=== PATIENT | female | born 1965 | race Two or more races ===

== ENCOUNTER 2023-10-12 05:30 | Inpatient (IN) | payer MEDICAID ==
[2023-10-10 11:01] LABS: Basophils # (auto) 0 10 ^3/uL (0-0.2); Basophils % (auto) 0.2 % (0.0-2.0); Eosinophils # (auto) 0.1 10 ^3/uL (0-0.8); Eosinophils % (auto) 1.5 % (0.0-7.0); Hemoglobin 14.1 g/dL (12.2-16.2); Lymphocytes # (auto) 1.4 10 ^3/uL (0.4-5.4); Lymphocytes % (auto) 23.6 % (10.0-50.0); Mean Corpuscular Hgb Conc. 34.5 g/dL (32.0-36.0); Mean Corpuscular Volume 89.9 fL (80.0-100.0); Monocytes # (auto) 0.5 10 ^3/uL (0-1.3); Monocytes % (auto) 8.1 % (0.0-12.0); Neutrophils # (auto) 3.9 10 ^3/uL (1.6-8.6); Neutrophils % (auto) 66.6 % (37.0-80.0); Nucleated Red Blood Cells % 0.1 %; Red Blood Cells 4.56 10^6/uL (4.0-5.20); Red Cell Distribution Width 13.9 % (11.8-14.3); White Blood Cell 5.9 10^3/uL (4.4-10.8)
[2023-10-10 11:23] LABS: Partial Thromboplastin Time 28.5 SEC (24.5-34.5); Prothrombin Time 10.6 sec (9.3-11.8)
[2023-10-10 11:41] LABS: Alanine Aminotransferase 35 U/L (7-40); Alkaline Phosphatase 60 U/L (46-116); Anion Gap 5 (5-15); BUN/Creatinine Ratio 16.4 (10.0-20.0); Blood Urea Nitrogen 11 mg/dL (9-23); Calcium 9.6 mg/dL (8.5-10.1); Carbon Dioxide 32 mmol/L (20-30); Chloride 107 mmol/L (98-107); Glucose 112 mg/dL (74-106); Potassium 3.1 mmol/L (3.5-5.1); Sodium 144 mmol/L (136-145)
[2023-10-10 11:42] LABS: Albumin 3.8 g/dL (3.2-4.8); Aspartate Aminotransferase 25 U/L (13-40); Urine Bacteria FEW /hpf (None Seen); Urine Blood Negative /uL (Negative); Urine Clarity Clear (Clear); Urine Color Yellow (Yellow); Urine Mucus FEW (None Seen); Urine Protein, UAD Negative (Negative); Urine Specific Gravity 1.021 (1.001-1.035); Urine Urobilinogen Normal (Negative); Urine WBC 3 /hpf (0 - 5); Urine pH 6.5 (5.0-9.0)
[2023-10-10 11:43] LABS: Bilirubin, Total 0.5 mg/dL (0.2-1.0); Total Protein 6.2 g/dL (5.7-8.2)
[~2023-10-12] VITALS: Ht 157.5 cm; Wt 139.0 kg
[~2023-10-12 05:30] MED LIST: ATE50T PO; CHOL200064 PO; POTA-211 PO; SOLI10TA39 PO; TRAZ-181 PO; VENL1TAB97 PO
[2023-10-12] MEDS: BUPIVACAINE 0.5% P/F INJ 10 ML VIAL ONE (07:11)
[2023-10-12] MEDS ORDERED: DexAMETHasone SOD PHOS 10MG/1ML VIAL INJ ONE (07:15)
[2023-10-12] MEDS ORDERED: fentaNYL CITRATE 100 MCG/2 ML VL ONE (07:15)
[2023-10-12] MEDS ORDERED: ONDANSETRON HCL 4 MG/2 ML VIAL ONE (07:15)
[2023-10-12] MEDS ORDERED: KETAMINE 50mg/ML 1ml syringe ONE ×2 (07:15→08:19)
[2023-10-12] MEDS ORDERED: ePHEDrine SULFATE 50 MG/ML AMP ONE (07:15)
[2023-10-12] MEDS ORDERED: MORPHINE SULF PF 5 MG/10 ML VIAL ONE (07:15)
[2023-10-12] MEDS ORDERED: MIDAZOLAM HCL 2MG/2ML 2ml VIAL (1mg/ml) ONE (07:15)
[2023-10-12] MEDS ORDERED: PROPOFOL 10 MG/ML 20 ML IV ONE ×2 (07:15→08:58)
[2023-10-12] MEDS ORDERED: KETOROLAC TROMETH 30 MG/ML 1ML VIAL ONE (07:15)
[2023-10-12] MEDS ORDERED: GLYCOPYRROLATE 0.2 MG/ML 1ML VIAL ONE (07:15)
[2023-10-12] MEDS: BUPIVACAINE 0.25% INJ 50ML VIAL ONE (07:33)
[2023-10-12] MEDS: ceFAZolin 2 GM/D5W50ml 50 ML IV ONE (07:50)
[2023-10-12] MEDS: TRANEXAMIC ACID 20 ML ONE (07:55)
[2023-10-12] MEDS ORDERED: ceFAZolin 1GM VL ONE (07:55)
[2023-10-12] MEDS: POTASSIUM CHL 20MEQ/100ML 100 ML IV SCH (08:00)
[2023-10-12] MEDS: VANCOMYCIN HCL 1000 MG VL ONE (09:20)
[2023-10-12 09:52] VITALS: O2SAT 99
[2023-10-12] MEDS ORDERED: DexAMETHasone SOD PHOS 10MG/1ML VIAL INJ IV PRN (10:00)
[2023-10-12] MEDS ORDERED: NALOXONE HCL 0.4 MG/ML VIAL IV PRN (10:00)
[2023-10-12] MEDS ORDERED: diphenhdrAMINE HCL 50 MG/1 ML VL IV PRN (10:00)
[2023-10-12] MEDS ORDERED: MORPHINE SULFATE INJ 2 MG/ml SYRG IV PRN (10:15)
[2023-10-12] MEDS ORDERED: BISACODYL 5 MG EC TAB PO PRN (10:15)
[2023-10-12] MEDS ORDERED: NITROGLYCERIN 0.4 MG SL TAB SL PRN (10:15)
[2023-10-12] MEDS ORDERED: ceFAZolin 1GM/50ML 50 ML IV SCH (10:15)
[2023-10-12] MEDS: LACTATED RINGER'S 1,000 ML IV SCH (10:15)
[2023-10-12] MEDS: POTASSIUM CHLORIDE 40 MEQ, LIDOCAINE 1% (LOCAL ANESTH.) 4 ML in SODIUM CHL 0.9% 250 ML IV ONE (10:56)
[2023-10-12] MEDS: CLINDAMYCIN 600MG IV 50 ML IV SCH (12:22)
[2023-10-12] MEDS: ceFAZolin 1GM/50ML 50 ML IV SCH (14:01)
[2023-10-12 17:17] VITALS: BP 97/53; PULSE 63; RESP 19; TEMP 98.2; O2SAT 95
[2023-10-12 20:00] VITALS: PULSE 70
[2023-10-12 21:00] VITALS: BP 112/37; PULSE 67; RESP 16; TEMP 97.9; O2SAT 93
[2023-10-12] MEDS: DOCUSATE SOD 100 MG CAP PO SCH (21:51)
[2023-10-12] MEDS: oxyCODONE ER 10 MG TAB PO SCH (21:51)
[2023-10-13] VITALS (7 sets, daily range): BP systolic 101–137; BP diastolic 55–77; PULSE 65–79; RESP 16–20; TEMP 98–99.2; O2SAT 79–97
[2023-10-13] MEDS: KETOROLAC TROMETH 30 MG/ML 1ML VIAL IV PRN (02:00)
[2023-10-13 07:08] LABS: Alanine Aminotransferase 31 U/L (7-40); Albumin 3.3 g/dL (3.2-4.8); Alkaline Phosphatase 51 U/L (46-116); Anion Gap 5 (5-15); Aspartate Aminotransferase 21 U/L (13-40); BUN/Creatinine Ratio 23.2 (10.0-20.0); Blood Urea Nitrogen 16 mg/dL (9-23); Calcium 8.9 mg/dL (8.5-10.1); Carbon Dioxide 30 mmol/L (20-30); Chloride 107 mmol/L (98-107); Glucose 137 mg/dL (74-106); Potassium 3.5 mmol/L (3.5-5.1); Sodium 142 mmol/L (136-145)
[2023-10-13 07:09] LABS: Bilirubin, Total 0.3 mg/dL (0.2-1.0); Total Protein 5.3 g/dL (5.7-8.2)
[2023-10-13 07:25] LABS: Basophils # (auto) 0 10 ^3/uL (0-0.2); Basophils % (auto) 0.1 % (0.0-2.0); Eosinophils # (auto) 0 10 ^3/uL (0-0.8); Hematocrit 33.7 % (36.0-46.0); Hemoglobin 11.5 g/dL (12.2-16.2); Lymphocytes # (auto) 0.7 10 ^3/uL (0.4-5.4); Lymphocytes % (auto) 6.3 % (10.0-50.0); Mean Corpuscular Hemoglobin 30.7 pg (28.0-32.0); Mean Corpuscular Hgb Conc. 34.3 g/dL (32.0-36.0); Mean Corpuscular Volume 89.6 fL (80.0-100.0); Monocytes # (auto) 0.9 10 ^3/uL (0-1.3); Monocytes % (auto) 8.2 % (0.0-12.0); Neutrophils # (auto) 9.7 10 ^3/uL (1.6-8.6); Neutrophils % (auto) 85.4 % (37.0-80.0); Red Blood Cells 3.76 10^6/uL (4.0-5.20); Red Cell Distribution Width 13.4 % (11.8-14.3); White Blood Cell 11.4 10^3/uL (4.4-10.8)
[2023-10-13 08:38] LABS: Hepatitis B Surface Antigen Negative (Negative)
[2023-10-13 08:59] LABS: Hepatitis C Antibody Negative (Negative)
[2023-10-13] MEDS: ENOXAPARIN SOD 40 MG/0.4 ML SYRINGE SC SCH (09:35)
[2023-10-13 14:06] LABS: Urine Bacteria FEW /hpf (None Seen); Urine Blood 1+ /uL (Negative); Urine Clarity Turbid (Clear); Urine Color Yellow (Yellow); Urine Mucus FEW (None Seen); Urine Protein, UAD TRACE (Negative); Urine Specific Gravity 1.026 (1.001-1.035); Urine Urobilinogen Normal (Negative); Urine WBC 26 /hpf (0 - 5); Urine pH 5.5 (5.0-9.0)
[2023-10-13] MEDS: LACTATED RINGER'S 1,000 ML IV SCH (15:35)
[2023-10-14] VITALS (7 sets, daily range): BP systolic 73–137; BP diastolic 7–84; PULSE 75–96; RESP 16–20; TEMP 98.9–100.7; O2SAT 93–100
[2023-10-14 07:06] LABS: Hematocrit 31.8 % (36.0-46.0); Hemoglobin 10.9 g/dL (12.2-16.2)
[2023-10-14] MEDS: ACETAMINOPHEN 325 MG TAB PO PRN (18:42)
[2023-10-15] VITALS (8 sets, daily range): BP systolic 124–138; BP diastolic 68–80; PULSE 82–90; RESP 16–20; TEMP 98.1–99.7; O2SAT 5–96
[2023-10-15 06:54] LABS: Hemoglobin 10.7 g/dL (12.2-16.2)
[2023-10-15] MEDS: ONDANSETRON HCL 4 MG/2 ML VIAL IV PRN (09:59)
[2023-10-15] MEDS: HYDROcodone-ACET 5/325MG TAB PO PRN (13:22)
[2023-10-16] VITALS (7 sets, daily range): BP systolic 123–148; BP diastolic 67–90; PULSE 82–101; RESP 16–18; TEMP 98.2–99.1; O2SAT 90–98
[2023-10-16] MEDS ORDERED: [UNRECOGNIZED DRUG - CODE] XX (10:33)
[2023-10-16] MEDS ORDERED: ENO40SY SUBCUT (10:33)
[2023-10-16] MEDS ORDERED: [UNRECOGNIZED DRUG - CODE] XX (10:33)
[2023-10-17] VITALS (8 sets, daily range): BP systolic 123–146; BP diastolic 70–89; PULSE 77–94; RESP 17; TEMP 98.4–98.7; O2SAT 91–96
[2023-10-17] MEDS: ONDANSETRON HCL 4 MG/2 ML VIAL IV ONE (08:00)
[2023-10-17] MEDS: ATENOLOL 25 MG TAB PO ONE (15:32)
[2023-10-18] MEDS ORDERED: ATENOLOL 25 MG TAB PO SCH (10:00)
== END 2023-10-17 22:30 | disposition home health service (06) | DRG 326 ==
LOC: SUR 05:30 → TELE 10:06 → TELE-WESTW 13:41 → WEST WING 10-13 21:58
PROVIDERS: ADMIT Orthopaedic Surgery; ATTEND Internal Medicine
PROC: 0SRC0J9 Replacement of Right Knee Joint with Synthetic Substitute, Cemented, Open Approach (ICD-10-PCS; principal; 2023-10-12 07:33)
DX: M17.11 Unilateral primary osteoarthritis, right knee (principal); R71.0 Precipitous drop in hematocrit; Z68.43 Body mass index [BMI] 50.0-59.9, adult; E66.01 Morbid (severe) obesity due to excess calories; F32.A Depression, unspecified; F41.9 Anxiety disorder, unspecified; I10 Essential (primary) hypertension; R32 Unspecified urinary incontinence; Z79.899 Other long term (current) drug therapy; Z80.0 Family history of malignant neoplasm of digestive organs; Z80.49 Family history of malignant neoplasm of other genital organs; Z82.0 Family history of epilepsy and other diseases of the nervous system
CPT/HCPCS: 36415; 73562; 80053; 81001; 85014; 85018; 85025; 85610; 85730; 86803; 86850; 86900; 86901; 87340; 97110; 97116; 97163; 97530; G0378; J0690; J1100; J1885; J2001; J2250; J2405; J2704; J3490